=== PATIENT | male | born 1970 | race Caucasian/White ===

== ENCOUNTER 2018-03-04 17:21 | Emergency (ER) | payer OTHER ==
[2018-03-04] MEDS ORDERED: Ketorolac 60 MG/2 ML SDV IM ONE (18:16)
--- NOTE | 2018-03-04 18:17 | EDM.PDOC ---
ED HPI GENERAL MEDICAL PROBLEM - General Chief Complaint: Upper Extremity Injury/Pain Stated Complaint: PT FELL OFF LADDER AT WORK AND HURT LT SHOULDER Time Seen by Provider: 03/04/18 18:05 History Limitations: Reports: No Limitations - History of Present Illness INITIAL COMMENTS - FREE TEXT/NARRATIVE: HISTORY AND PHYSICAL: History of present illness: 48-year-old male presenting to emergency department with chief complaint of left shoulder pain. Patient states that today at work he was stepping off the last rung of the ladder and while twisting lost his balance falling on his left side. He felt immediate pain and noticed deformity in his left shoulder. He proceeded to come to emergency department for further evaluation. He denies any loss in sensation or muscle strength. He has exquisite pain to the left shoulder. He denies any history of this shoulder. He denies any chest pain prior to her proceeding event. He did not lose consciousness. He denies any other trauma. Review of systems: As per history of present illness and below otherwise all systems reviewed and negative. Past medical history: As per history of present illness and as reviewed below otherwise noncontributory. Surgical history: As per history of present illness and as reviewed below otherwise noncontributory. Social history: No reported history of drug or alcohol abuse. Family history: As per history of present illness and as reviewed below otherwise noncontributory. Physical exam: HEENT: Atraumatic, normocephalic, pupils reactive, negative for conjunctival pallor or scleral icterus, mucous membranes moist, throat clear, neck supple, nontender, trachea midline. Lungs: Clear to auscultation, breath sounds equal bilaterally, chest nontender. Heart: S1S2, regular, negative for clicks, rubs, or JVD. Abdomen: Soft, nondistended, nontender. Negative for masses or hepatosplenomegaly. Negative for costovertebral tenderness. Pelvis: Stable nontender. Genitourinary: Deferred. Rectal: Deferred. Extremities: There is visual deformity to the left shoulder. Patient is tender to palpation and is in a side-lying position she states is most comfortable. Sensation intact. 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 Neurovascular unremarkable. Neuro: Awake, alert, oriented. Cranial nerves II through XII unremarkable. Cerebellum unremarkable. Motor and sensory unremarkable throughout. Exam nonfocal. Diagnostics: Left shoulder x-ray Therapeutics: 60 mg Toradol IM Impression: Posterior left shoulder dislocation Plan: Using gentle traction counter traction the shoulder was relocated. Patient tolerated procedure well without complications. He was given a shoulder immobilizer and instructed use tylenol and ibuprofen for pain and inflammation. He can also use Ice on 15 off 15 min. He should follow-up with his PCP and return to ED if he has any new or worsening symptoms. He was also told that secondary to dislocation he was more susceptible to future dislocations. Patient was discharged in good condition with above instructions. Left Shoulder Pain Score (Numeric/FACES): 8 - Related Data Allergies Allergy/AdvReac Type Severity Reaction Status Date / Time No Known Allergies Allergy Verified 03/04/18 18:29 Home Meds: Home Meds Hydrochlorothiazide 12.5 mg DAILY 03/04/18 [History] Lisinopril [Zestril] 20 mg DAILY 03/04/18 [History] Review of Systems - Review of Systems Review Of Systems: See Below ED EXAM, GENERAL - Physical Exam Exam: See Below Course - Vital Signs Last Recorded V/S: Last Vital Signs Temp 98.1 F 03/04/18 18:26 Pulse 95 03/04/18 18:26 Resp 18 03/04/18 18:26 BP 125/79 03/04/18 18:26 Pulse Ox 99 03/04/18 18:26 - Orders/Labs/Meds Orders: Active Orders 24 hr Category Date Time Status Shoulder 1V Lt [CR] Stat Exams 03/04/18 19:12 Ordered Shoulder Comp Lt [CR] Stat Exams 03/04/18 18:16 Taken Meds: Medications Discontinued Medications Generic Name Dose Route Start Last Admin Trade Name Tiffanie PRN Reason Stop Dose Admin Ketorolac Tromethamine 60 mg 03/04/18 18:16 03/04/18 18:43 Toradol IM 03/04/18 18:17 60 mg ONETIME ONE Administration Departure - Departure Time of Disposition: 19:30 Disposition: Home, Self-Care 01 Condition: Good Clinical Impression: Posterior dislocation of left shoulder joint - Discharge Information Referrals: PCP,None [Primary Care Provider] - Forms: ED Department Discharge - My Orders Last 24 Hours: My Active Orders 03/04/18 18:16 Shoulder Comp Lt [CR] Stat 03/04/18 19:12 Shoulder 1V Lt [CR] Stat - Assessment/Plan Last 24 Hours: My Active Orders 03/04/18 18:16 Shoulder Comp Lt [CR] Stat 03/04/18 19:12 Shoulder 1V Lt [CR] Stat
--- NOTE | 2018-03-07 09:15 | CR ---
EXAM DATE: 03/04/18 PATIENT'S AGE: 48 Patient: DAVID YIP Facility: [place], [place] Site . Site : 1970 Study: XRay Shoulder Left [id number]/18/2018 6:36:21 PM Ordering Physician: Thiago Causey Final Report: INDICATION: Status post fall. TECHNIQUE: Left shoulder, two views COMPARISON: None FINDINGS: Inferomedial displacement of left humeral head relative to the glenoid with anterior dislocation on scapular Y-view, compatible with anterior dislocation. AC joint alignment intact. Visualized left ribs are intact. IMPRESSION: 1. Left shoulder, anterior dislocation. Dictated by Fabrizio Orta MD @ 03/04/2018 7:35:54 PM Dictated by: Fabrizio Orta MD @ 03/04/2018 19:36:04 (Electronic Signature) Report Signed by Proxy. [facility] HOSPITALNathalie
--- NOTE | 2018-03-07 09:24 | CR ---
EXAM DATE: 03/04/18 PATIENT'S AGE: 48 Patient: DAVID YIP Facility: [place], [place] Site . Site : 1970 Study: XRay Shoulder Left [id number]/18/2018 7:31:04 PM Ordering Physician: Thiago Causey Final Report: INDICATION: Post reduction. TECHNIQUE: Left shoulder, AP view only. COMPARISON: Left shoulder series earlier on 03/04/2018. FINDINGS: Single view of the left shoulder. Interval reduction of earlier anterior left shoulder dislocation. No definite fracture. No soft tissue calcifications. IMPRESSION: 1. Interval reduction of left shoulder. Dictated by Fabrizio Orta MD @ 03/04/2018 7:39:20 PM Dictated by: Fabrizio Orta MD @ 03/04/2018 19:39:25 (Electronic Signature) Report Signed by Proxy. [facility]
== END 2018-03-04 19:42 | disposition home or self-care (01) ==
LOC: MW.ED 17:21
DX: S43.015A Anterior dislocation of left humerus, initial encounter (principal); W11.XXXA Fall on and from ladder, initial encounter; Z79.899 Other long term (current) drug therapy
CPT/HCPCS: 23650; 73020; 73030; 96372; 99283; J1885